=== PATIENT | female | born 1960 ===

== ENCOUNTER 2017-12-21 10:10 | Emergency (ER) | payer MEDICARE, MEDICAID ==
[2017-12-21 10:10] VITALS: BMI 49.4
[2017-12-21 10:33] VITALS: BP 129/84; PULSE 76; RESP 20; TEMP 97.9; O2SAT 97
[2017-12-21 11:56] LABS: SQUAMOUS EPITHIAL 7 /hpf (0-5); URINE BACTERIA RARE (<OCC); URINE BILIRUBIN NEGATIVE (NEGATIVE); URINE BLOOD SMALL (NEGATIVE); URINE CLARITY CLOUDY (Clear); URINE COLOR YELLOW (YELLOW); URINE GLUCOSE (UA) 150 mg/dL (Normal); URINE LEUKOCYTE ESTERASE LARGE Leu/uL (Negative); URINE PROTEIN NEGATIVE (NEGATIVE); URINE UROBILINOGEN 0.2-1.0 mg/dL (0.2-1.0)
[2017-12-21 12:15] LABS: BASO % 0.6 % (0.0-2.0); EOS # 0.1 K/uL (0.0-0.7); EOS % 1.7 % (0.0-4.0); HEMOGLOBIN 14.3 g/dL (12.0-16.0); LYMPH # 2.3 K/uL (1.0-4.3); LYMPH % 33.8 % (20.0-40.0); MEAN CELL VOLUME 85.3 fl (81.0-99.0); MONO # 0.5 K/uL (0.0-0.8); MONO % 6.9 % (0.0-10.0); NRBC % 0.1 % (0.0-0.0); RBC 4.92 Mil/uL (3.80-5.20); RED CELL DISTRIBUTION WIDTH 14.3 % (11.5-14.5); WHITE BLOOD COUNT 6.9 K/uL (4.8-10.8)
[2017-12-21 12:28] LABS: CALCIUM 9.2 mg/dL (8.4-10.2); GFR AFRICAN-AMERICAN > 60; GFR NON-AFRICAN AMERICAN > 60
--- NOTE | 2017-12-21 12:53 | ED PDOC ---
HPI: Female Pain Time Seen by Provider: 12/21/17 10:54 Chief Complaint (Nursing): Female Genitourinary Chief Complaint (Provider): Vaginal discomfort History Per: Patient History/Exam Limitations: no limitations Onset/Duration Of Symptoms: Days Current Symptoms Are (Timing): Still Present Additional Complaint(s): 57yo female, with history of hypertnesion with diabetes, presents to ED with complaints of vaginal discomfort and discharge for one week. She reports dysuria , burning upon urination but denies any fever or vomiting. Patient states she did have a mesh placement for her urinary incontinence in the past. She currently denies any other medical complaints. Past Medical History Reviewed: Historical Data, Nursing Documentation, Vital Signs Vital Signs: Last Vital Signs Temp 97.9 F 12/21/17 10:32 Pulse 76 12/21/17 10:32 Resp 20 12/21/17 10:32 BP 129/84 12/21/17 10:32 Pulse Ox 97 12/21/17 10:32 - Medical History PMH: Arthritis, Bronchitis, Diabetes (type 2), Gastritis, Gall Bladder Disease, Rheumatoid Arthritis Denies: Hepatitis - Surgical History Surgical History: Cholecystectomy - Family History Family History: States: Unknown Family Hx - Immunization History Hx Tetanus Toxoid Vaccination: No Hx Influenza Vaccination: No Hx Pneumococcal Vaccination: No - Home Medications Home Medications: Ambulatory Orders Medication Instructions Recorded Naproxen/Esomeprazole Mag [Vimovo 1 tab PO BID PRN 10/15/16 Dr 500-20 mg Tablet] Omeprazole 20 mg PO DAILY 10/15/16 SITagliptin [Januvia] 100 mg PO BID 10/15/16 metFORMIN [glucOPHAGE] 500 mg PO BID 10/15/16 Aspirin [Ecotrin] 81 mg PO DAILY PRN 05/20/17 Fluconazole [Diflucan] 200 mg PO ONCE #1 tab 12/21/17 Nitrofurantoin Macrocrystals 100 mg PO BID #14 cap 12/21/17 [Macrobid] - Allergies Allergies/Adverse Reactions: Allergies Allergy/AdvReac Type Severity Reaction Status Date / Time morphine AdvReac RASH Verified 12/21/17 10:31 Review of Systems ROS Statement: Except As Marked, All Systems Reviewed And Found Negative Constitutional: Negative for: Fever Gastrointestinal: Negative for: Vomiting Genitourinary Female: Positive for: Dysuria, Frequency, Vaginal Discharge Physical Exam - Reviewed Nursing Documentation Reviewed: Yes Vital Signs Reviewed: Yes - Physical Exam Appears: Positive for: Non-toxic, No Acute Distress Head Exam: Positive for: ATRAUMATIC, NORMAL INSPECTION, NORMOCEPHALIC Skin: Positive for: Normal Color Eye Exam: Positive for: Normal appearance Neck: Positive for: Supple Cardiovascular/Chest: Positive for: Regular Rate, Rhythm Respiratory: Positive for: Normal Breath Sounds. Negative for: Respiratory Distress Gastrointestinal/Abdominal: Positive for: Normal Exam, Soft. Negative for: Tenderness Pelvic Exam: Positive for: No Cerv. Motion Tender, Discharge (white, cottage cheese discharge noted). Negative for: Tender Adnexa Back: Positive for: Normal Inspection Extremity: Positive for: Normal ROM Neurologic/Psych: Positive for: Alert, Oriented. Negative for: Motor/Sensory Deficits - Laboratory Results Result Diagrams: 12/21/17 12:00 12/21/17 12:00 - ECG O2 Sat by Pulse Oximetry: 97 (RA) Pulse Ox Interpretation: Normal Medical Decision Making Medical Decision Making: Impression: Vaginal discharge, dysuria Differential: UTi, vaginitis lindy Plan: -- Pelvic exam done with MARCELINO Ibarra Nurse as pot builder. -- Labs -- Toradol 30 mg IM -- Chlamydia/GC RNA, TMA Scribe Attestation: Documented by Paulette Hahn, acting as a scribe for Jose Daniel Borrero MD. Provider Scribe Attestation: All medical record entries made by the Scribe were at my direction and personally dictated by me. I have reviewed the chart and agree that the record accurately reflects my personal performance of the history, physical exam, medical decision making, and the department course for this patient. I have also personally directed, reviewed, and agree with the discharge instructions and disposition. Disposition - Clinical Impression Clinical Impression: Genitourinary Pain, Dysuria, Vaginitis - Patient ED Disposition Is Patient to be Admitted: No Counseled Patient/Family Regarding: Studies Performed, Diagnosis, Need For Followup - Disposition Referrals: [facility] [Outside] Disposition: Routine/Home Disposition Time: 12:53 Condition: GOOD Additional Instructions: Take your medications as instructed. Follow up with your PCP in 2-3 days. Prescriptions: Fluconazole [Diflucan] 200 mg PO ONCE #1 tab Nitrofurantoin Macrocrystals [Macrobid] 100 mg PO BID #14 cap Instructions: Urinary Tract Infections in Adults, Vaginal Yeast Infection (DC) Print Language: TELUGU
[2017-12-21 13:02] LABS: BLOOD UREA NITROGEN 15 mg/dl (7-17)
== END 2017-12-21 13:05 | disposition home or self-care (01) ==
LOC: H.ER 10:10
DX: N76.0 Acute vaginitis (principal); E11.9 Type 2 diabetes mellitus without complications; M06.9 Rheumatoid arthritis, unspecified; Z79.82 Long term (current) use of aspirin; Z79.84 Long term (current) use of oral hypoglycemic drugs; Z88.5 Allergy status to narcotic agent
CPT/HCPCS: 80048; 81003; 85025; 87491; 87591; 96372; 99282; J1885

== ENCOUNTER 2018-11-26 17:38 | Emergency (ER) | payer MEDICARE, MEDICAID ==
[2018-11-26 17:39] VITALS: BMI 49.4
[2018-11-26 17:43] VITALS: BP 150/83; PULSE 117; RESP 19; TEMP 98.6; O2SAT 97
[2018-11-26] MEDS ORDERED: Sodium Chloride 0.9% 1,000 ML IV STA (18:18)
--- NOTE | 2018-11-26 18:22 | ED PDOC ---
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 Patient has a Hx of polyps that was found on an endoscopy 2 years ago. Additionally, she reports that her sister from hemorrhage of the mouth and rectum, thus, causing concern for her throat. Patient states she uses Aspirin daily. Otherwise, she denies headache, abdominal pain, chest pain, shortness of breath, rectal pain or bleeding. No runny nose or congestion. No dizziness. PCP: Dr. Rogelio Flores GI: has not followed with specialist for years Past Medical History Reviewed: Historical Data, Nursing Documentation, Vital Signs Vital Signs: Last Vital Signs Temp 98.6 F 11/26/18 17:40 Pulse 117 H 11/26/18 17:40 Resp 19 11/26/18 17:40 BP 150/83 11/26/18 17:40 Pulse Ox 97 11/26/18 17:40 - Medical History PMH: Arthritis, Asthma, Bronchitis, Diabetes (type 2), Gastritis, Gall Bladder Disease, HTN, Rheumatoid Arthritis Denies: Hepatitis - Surgical History Surgical History: Cholecystectomy - Family History Family History: States: Unknown Family Hx - Immunization History Hx Tetanus Toxoid Vaccination: No Hx Influenza Vaccination: No Hx Pneumococcal Vaccination: No - Home Medications Home Medications: Ambulatory Orders Medication Instructions Recorded Naproxen/Esomeprazole Mag [Vimovo 1 tab PO BID PRN 10/15/16 500-20 mg Tablet] Omeprazole 20 mg PO DAILY 10/15/16 SITagliptin [Januvia] 100 mg PO BID 10/15/16 metFORMIN [glucOPHAGE] 500 mg PO BID 10/15/16 Aspirin [Ecotrin] 81 mg PO DAILY PRN 05/20/17 Fluconazole [Diflucan] 200 mg PO ONCE #1 tab 12/21/17 Fluconazole [Diflucan] 150 mg PO DAILY #1 tab 01/07/18 Fluconazole [Diflucan] 150 mg PO ONCE #1 tab 02/02/18 Miconazole 2% [Miconazole 2% Cream] 1 ea EXT BID #1 tube 02/02/18 - Allergies Allergies/Adverse Reactions: Allergies Allergy/AdvReac Type Severity Reaction Status Date / Time morphine Allergy RASH Verified 11/26/18 17:43 Review of Systems ROS Statement: Except As Marked, All Systems Reviewed And Found Negative Constitutional: Positive for: Malaise Cardiovascular: Negative for: Chest Pain Respiratory: Positive for: Cough, Sputum (with blood). Negative for: Shortness of Breath Gastrointestinal: Negative for: Abdominal Pain, Rectal Pain (or bleed) Neurological: Negative for: Headache Physical Exam - Reviewed Nursing Documentation Reviewed: Yes Vital Signs Reviewed: Yes - Physical Exam Appears: Positive for: Non-toxic, No Acute Distress Head Exam: Positive for: ATRAUMATIC, NORMAL INSPECTION, NORMOCEPHALIC Skin: Positive for: Normal Color Eye Exam: Positive for: Normal appearance, EOMI, PERRL ENT: Positive for: Normal ENT Inspection. Negative for: Pharyngeal Erythema, Other (blood in oral cavity) Neck: Positive for: Normal Cardiovascular/Chest: Positive for: Regular Rate, Rhythm Respiratory: Positive for: Normal Breath Sounds. Negative for: Respiratory Distress Gastrointestinal/Abdominal: Positive for: Normal Exam, Soft. Negative for: Tenderness Back: Positive for: Normal Inspection Extremity: Positive for: Normal ROM (upper/lower). Negative for: Pedal Edema, Calf Tenderness Neurologic/Psych: Positive for: Alert, Oriented, Mood/Affect (tired). Negative for: Motor/Sensory Deficits - Laboratory Results Result Diagrams: 11/26/18 18:55 11/26/18 18:55 Interpretation Of Abn Labs: mild elevated liver enzymes - ECG O2 Sat by Pulse Oximetry: 97 (RA) Pulse Ox Interpretation: Normal - Radiology X-Ray: Interpreted by Me, Viewed By Me X-Ray Interpretation: No Acute Disease - Progress ED Course And Treament: 2031: Stable. AAOx3. Pain free. Tolerated PO. Fu with pcp. Medical Decision Making Medical Decision Making: Time: 1813 Initial Plan: * Labs * CXR * IV fluids Scribe Attestation: Documented by Felicia Bui, acting as a scribe for Matthew Nelson MD. Provider Scribe Attestation: All medical record entries made by the Scribe were at my direction and personally dictated by me. I have reviewed the chart and agree that the record accurately reflects my personal performance of the history, physical exam, medical decision making, and the department course for this patient. I have also personally directed, reviewed, and agree with the discharge instructions and disposition. Disposition - Clinical Impression Clinical Impression: Cough, Bloody sputum, Elevated liver enzymes - Patient ED Disposition Is Patient to be Admitted: No Counseled Patient/Family Regarding: Studies Performed, Diagnosis, Need For Followup, Rx Given - Disposition Referrals: [facility] [Outside] - 11/29/18 Disposition: Routine/Home Disposition Time: 20:33 Condition: STABLE Additional Instructions: Return if not better in 3 days. You have elevated liver enzymes so make sure to follow up with your doctor in 3 days. Regreso si no mejor en 3 jean. Tiene enzimas hepticas elevadas, as que asegrese de hacer un seguimiento con ball mdico en 3 jean. Forms: [employer] (Portuguese)
[2018-11-26 19:03] LABS: BASO # 0.1 K/uL (0.0-0.2); BASO % 0.8 % (0.0-2.0); EOS # 0.1 K/uL (0.0-0.7); EOS % 1.4 % (0.0-4.0); HEMOGLOBIN 13.4 g/dL (12.0-16.0); LYMPH # 1.9 K/uL (1.0-4.3); LYMPH % 26.2 % (20.0-40.0); MEAN CELL VOLUME 86.9 fl (81.0-99.0); MEAN CORPUSCULAR HGB CONC 33.3 g/dL (33.0-37.0); MEAN PLATELET VOLUME 8.6 fl (7.2-11.7); MONO # 0.6 K/uL (0.0-0.8); MONO % 7.7 % (0.0-10.0); NEUT # 4.7 K/uL (1.8-7.0); NEUT % 63.9 % (50.0-75.0); RBC 4.62 Mil/uL (3.80-5.20); RED CELL DISTRIBUTION WIDTH 13.7 % (11.5-14.5); WHITE BLOOD COUNT 7.4 K/uL (4.8-10.8)
[2018-11-26 19:09] LABS: INR 1.1; PROTHROMBIN TIME 12.6 Seconds (9.8-13.1)
[2018-11-26 19:12] LABS: PARTIAL THROMBOPLASTIN TIME 40.5 Seconds (25.6-37.1)
[2018-11-26 19:13] LABS: BLOOD UREA NITROGEN 15 mg/dl (7-17); CALCIUM 9.3 mg/dL (8.4-10.2); GFR NON-AFRICAN AMERICAN > 60
[2018-11-26 19:17] LABS: ALB/GLOB RATIO 1.1 (1.0-2.1); ALBUMIN 4.5 g/dL (3.5-5.0); ALT/SGPT 62 U/L (9-52); AST/SGOT 71 U/L (14-36)
--- NOTE | 2018-11-27 12:11 | RAD ---
Date of service: 11/26/2018 HISTORY: Cough. COMPARISON: 10/14/2016. TECHNIQUE: Chest PA and lateral FINDINGS: LUNGS: No active pulmonary disease. PLEURA: No significant pleural effusion identified. No pneumothorax apparent. CARDIOVASCULAR: No aortic atherosclerotic calcification present. Normal cardiac size. No pulmonary vascular congestion. OSSEOUS STRUCTURES: No significant abnormalities. VISUALIZED UPPER ABDOMEN: Normal. OTHER FINDINGS: None. IMPRESSION: No active disease. No significant interval change compared to the prior examination(s). Concordant results with the preliminary interpretation rendered by the emergency department physician procedure.
== END 2018-11-26 20:50 | disposition home or self-care (01) ==
LOC: H.ER 17:38
DX: R04.2 Hemoptysis (principal); R94.5 Abnormal results of liver function studies; E11.9 Type 2 diabetes mellitus without complications; I10 Essential (primary) hypertension; Z79.84 Long term (current) use of oral hypoglycemic drugs
CPT/HCPCS: 71046; 80053; 85025; 85610; 85730; 96360; 99282; J7030

== ENCOUNTER 2018-11-30 14:11 | Emergency (ER) | payer MEDICARE, MEDICAID ==
[2018-11-30 14:11] VITALS: BMI 49.4
[2018-11-30 14:24] VITALS: O2SAT 98
[2018-11-30] MEDS ORDERED: Oxycodone/Acetaminophen 5/325 mg Tab PO STA (14:42)
[2018-11-30] MEDS ORDERED: Sodium Chloride 0.9% 1,000 ML IV ONE ×2 (14:43→16:27)
--- NOTE | 2018-11-30 14:45 | ED PDOC ---
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 Pt denies hx of stones, but has had a cholecystecomy; pt denies recent illness, sick contacts, diarhhea, nausea, vomiting and fever. ), "Pain" Past Medical History Reviewed: Historical Data, Nursing Documentation, Vital Signs Vital Signs: Last Vital Signs Temp 98.9 F 11/30/18 14:21 Pulse 89 11/30/18 14:21 Resp 16 11/30/18 14:21 BP 141/87 11/30/18 14:21 Pulse Ox 98 11/30/18 14:21 - Medical History PMH: Arthritis, Asthma, Bronchitis, Diabetes (type 2), Gastritis, Gall Bladder Disease, HTN, Rheumatoid Arthritis Denies: Hepatitis - Surgical History Surgical History: Cholecystectomy - Family History Family History: States: Unknown Family Hx - Immunization History Hx Tetanus Toxoid Vaccination: No Hx Influenza Vaccination: No Hx Pneumococcal Vaccination: No - Home Medications Home Medications: Ambulatory Orders Medication Instructions Recorded Naproxen/Esomeprazole Mag [Vimovo 1 tab PO BID PRN 10/15/16 Dr 500-20 mg Tablet] Omeprazole 20 mg PO DAILY 10/15/16 SITagliptin [Januvia] 100 mg PO BID 10/15/16 metFORMIN [glucOPHAGE] 500 mg PO BID 10/15/16 Aspirin [Ecotrin] 81 mg PO DAILY PRN 05/20/17 Benzonatate [Tessalon Perles] 100 mg PO BID PRN 5 Days sgl 11/26/18 - Allergies Allergies/Adverse Reactions: Allergies Allergy/AdvReac Type Severity Reaction Status Date / Time morphine Allergy RASH Verified 11/26/18 17:43 Review of Systems ROS Statement: Except As Marked, All Systems Reviewed And Found Negative Gastrointestinal: Positive for: Abdominal Pain Physical Exam - Reviewed Nursing Documentation Reviewed: Yes Vital Signs Reviewed: Yes - Physical Exam Appears: Positive for: Uncomfortable. Negative for: No Acute Distress Head Exam: Positive for: ATRAUMATIC, NORMAL INSPECTION Skin: Positive for: Normal Color, Warm, Dry. Negative for: Diaphoresis, Pallor, Rash Eye Exam: Negative for: Nystagmus, Periorbital swelling, Periorbital tenderness Neck: Positive for: Normal, Painless ROM, Supple. Negative for: Decreased ROM Cardiovascular/Chest: Positive for: Regular Rate, Rhythm Respiratory: Positive for: Normal Breath Sounds Pulses-Carotid (L): 2+ Pulses-Carotid (R): 2+ Pulses-Radial (L): 2+ Pulses-Radial (R): 2+ Gastrointestinal/Abdominal: Positive for: Normal Exam, Bowel Sounds, Soft. Negative for: Tenderness, Distended, Guarding, Rebound Back: Positive for: L CVA Tenderness, R CVA Tenderness. Negative for: Normal Inspection - Laboratory Results Result Diagrams: 11/30/18 15:15 11/30/18 15:15 - ECG O2 Sat by Pulse Oximetry: 98 Medical Decision Making Medical Decision Making: Pyelonephritis vs Renal Stones CBC CMP UA all produced negative results for clinical presentation; ordered CT ABD and P jess without Contrast to r/o renal stones Results as follow (negative, diverticulosis) Date of service: 11/30/2018 PROCEDURE: CT Abdomen and Pelvis without intravenous contrast HISTORY: Waist pain. Calculus disease suspected. COMPARISON: 10/15/2016. Abdominal ultrasound TECHNIQUE: Unenhanced. Neither IV nor oral contrast administered Radiation dose: Total exam DLP = 866.95 mGy-cm. This CT exam was performed using one or more of the following dose reduction techniques: Automated exposure control, adjustment of the mA and/or kV according to patient size, and/or use of iterative reconstruction technique. FINDINGS: LOWER THORAX: Unremarkable. LIVER: Unremarkable. No gross lesion or ductal dilatation. Pneumobilia. Air in non dependent biliary radicles primarily left lobe. GALLBLADDER AND BILE DUCTS: Status post cholecystectomy. No abnormality is seen in the gallbladder fossa. PANCREAS: Unremarkable. No gross lesion or ductal dilatation. SPLEEN: Unremarkable. ADRENALS: Unremarkable. No mass. KIDNEYS AND URETERS: Unremarkable. No hydronephrosis. No solid mass. VASCULATURE: Unremarkable. No aortic aneurysm. No atherosclerotic calcification or mural plaq ue present. BOWEL: Diverticulosis without an acute inflammatory component or other associated patho logic process. APPENDIX: A normal appendix is visualized in it's entirety. PERITONEUM: Unremarkable. No free fluid. No free air. LYMPH NODES: Unremarkable. No enlarged lymph nodes. BLADDER: Unremarkable. REPRODUCTIVE: Unremarkable. BONES: No acute fracture. Grade 1 anterolisthesis L5-S1. Associated vacuum disc phenomenon. Pars defects noted. OTHER FINDINGS: Fat containing periumbilical hernia. IMPRESSION: No acute findings related to/ accounting for the clinical presentation. Additional benign and/or incidental findings described above. Disposition - Clinical Impression Clinical Impression: Diverticulosis - Patient ED Disposition Is Patient to be Admitted: No Doctor Will See Patient In The: Office Counseled Patient/Family Regarding: Studies Performed, Diagnosis, Need For Followup - Disposition Disposition: Routine/Home Disposition Time: 19:18 Condition: STABLE Instructions: Diverticulosis, Diverticulosis (DC) Forms: [employer] (Persian), [employer] (Senegalese) Print Language: IRANIAN
[2018-11-30] MEDS ORDERED: Oxycodone/Acetaminophen 5/325 mg Tab ONE (14:57)
[2018-11-30 16:02] LABS: BASO % 0.5 % (0.0-2.0); EOS # 0.1 K/uL (0.0-0.7); EOS % 1.3 % (0.0-4.0); HEMOGLOBIN 13.3 g/dL (12.0-16.0); LYMPH # 2.5 K/uL (1.0-4.3); LYMPH % 28.7 % (20.0-40.0); MEAN CELL VOLUME 87.3 fl (81.0-99.0); MEAN CORPUSCULAR HEMOGLOBIN 29.1 pg (27.0-31.0); MEAN CORPUSCULAR HGB CONC 33.4 g/dL (33.0-37.0); MEAN PLATELET VOLUME 8.8 fl (7.2-11.7); MONO # 0.7 K/uL (0.0-0.8); MONO % 8.4 % (0.0-10.0); NEUT # 5.2 K/uL (1.8-7.0); NEUT % 61.1 % (50.0-75.0); RBC 4.59 Mil/uL (3.80-5.20); RED CELL DISTRIBUTION WIDTH 13.8 % (11.5-14.5); WHITE BLOOD COUNT 8.6 K/uL (4.8-10.8)
[2018-11-30 16:04] LABS: SQUAMOUS EPITHIAL 1 /hpf (0-5); URINE BILIRUBIN NEGATIVE (NEGATIVE); URINE BLOOD NEGATIVE (NEGATIVE); URINE CLARITY CLEAR (Clear); URINE COLOR YELLOW (YELLOW); URINE GLUCOSE (UA) NEG (NEGATIVE); URINE LEUKOCYTE ESTERASE NEG Leu/uL (Negative); URINE PROTEIN NEGATIVE (NEGATIVE); URINE UROBILINOGEN 0.2-1.0 mg/dL (0.2-1.0)
[2018-11-30 16:20] LABS: ALB/GLOB RATIO 1.1 (1.0-2.1); ALBUMIN 4.3 g/dL (3.5-5.0); ALT/SGPT 71 U/L (9-52); AST/SGOT 50 U/L (14-36); BLOOD UREA NITROGEN 14 mg/dl (7-17); CALCIUM 9.2 mg/dL (8.4-10.2); GFR NON-AFRICAN AMERICAN > 60; LIPASE 79 U/L (23-300)
--- NOTE | 2018-11-30 17:28 | CT ---
Date of service: 11/30/2018 PROCEDURE: CT Abdomen and Pelvis without intravenous contrast HISTORY: Waist pain. Calculus disease suspected. COMPARISON: 10/15/2016. Abdominal ultrasound TECHNIQUE: Unenhanced. Neither IV nor oral contrast administered Radiation dose: Total exam DLP = 866.95 mGy-cm. This CT exam was performed using one or more of the following dose reduction techniques: Automated exposure control, adjustment of the mA and/or kV according to patient size, and/or use of iterative reconstruction technique. FINDINGS: LOWER THORAX: Unremarkable. LIVER: Unremarkable. No gross lesion or ductal dilatation. Pneumobilia. Air in non dependent biliary radicles primarily left lobe. GALLBLADDER AND BILE DUCTS: Status post cholecystectomy. No abnormality is seen in the gallbladder fossa. PANCREAS: Unremarkable. No gross lesion or ductal dilatation. SPLEEN: Unremarkable. ADRENALS: Unremarkable. No mass. KIDNEYS AND URETERS: Unremarkable. No hydronephrosis. No solid mass. VASCULATURE: Unremarkable. No aortic aneurysm. No atherosclerotic calcification or mural plaque present. BOWEL: Diverticulosis without an acute inflammatory component or other associated pathologic process. APPENDIX: A normal appendix is visualized in it's entirety. PERITONEUM: Unremarkable. No free fluid. No free air. LYMPH NODES: Unremarkable. No enlarged lymph nodes. BLADDER: Unremarkable. REPRODUCTIVE: Unremarkable. BONES: No acute fracture. Grade 1 anterolisthesis L5-S1. Associated vacuum disc phenomenon. Pars defects noted. OTHER FINDINGS: Fat containing periumbilical hernia. IMPRESSION: No acute findings related to/ accounting for the clinical presentation. Additional benign and/or incidental findings described above.
[2018-11-30 18:22] VITALS: TEMP 98
[2018-11-30 19:31] VITALS: BP 120/77; PULSE 81; RESP 16
== END 2018-11-30 19:30 | disposition home or self-care (01) ==
LOC: H.ER 14:11
DX: K57.90 Diverticulosis of intestine, part unspecified, without perforation or abscess without bleeding (principal); E11.9 Type 2 diabetes mellitus without complications; I10 Essential (primary) hypertension; J45.909 Unspecified asthma, uncomplicated; M06.9 Rheumatoid arthritis, unspecified; Z79.84 Long term (current) use of oral hypoglycemic drugs; Z87.442 Personal history of urinary calculi
CPT/HCPCS: 74176; 80053; 81003; 83690; 85025; 96374; 99282; J2405; J7030